=== PATIENT | male | born 1970 | race Caucasian/White ===

== ENCOUNTER 2017-04-06 21:15 | Emergency (ER) | payer BC ==
[~2017-04-06] VITALS: Ht 177.8 cm; Wt 90.7 kg
[2017-04-06] MEDS ORDERED: CRESTOR40 MG (21:25)
[2017-04-06] MEDS ORDERED: VITAMIN E400 UNIT (21:26)
[2017-04-06] MEDS ORDERED: PROTONIX40 M2 (21:26)
[2017-04-06] MEDS ORDERED: MEDROLDOSEPACK PO (21:56)
[2017-04-06 22:03] VITALS: BP 138/90
== END 2017-04-06 22:03 | disposition home or self-care (01) ==
LOC: M.ERS 21:15
DX: K12.2 Cellulitis and abscess of mouth (principal); E78.5 Hyperlipidemia, unspecified; K21.9 Gastro-esophageal reflux disease without esophagitis; Z88.0 Allergy status to penicillin

== ENCOUNTER 2019-11-07 21:08 | Observation (INO) | payer OTHER ==
[~2019-11-07] VITALS: Ht 177.8 cm; Wt 93.9 kg
[~2019-11-07 21:08] MED LIST: CRESTOR40 MG PO; MEDROLDOSEPACK PO; PROTONIX40 M2 PO; VITAMIN E400 UNIT PO
[2019-11-07 21:16] VITALS: BP 152/109
[2019-11-07] MEDS ORDERED: ZETIA10 MG PO (21:19)
[2019-11-07] MEDS ORDERED: XYZAL5 MG PO (21:19)
[2019-11-07] MEDS ORDERED: SINGULAIR 10 MG10 MG PO (21:19)
[2019-11-07 22:31] LABS: ABSOLUTE EOSINOPHILS 0.1 thou/uL (0.0-0.7); ABSOLUTE LYMPHOCYTES 1.8 thou/uL (0.8-5.3); ABSOLUTE MONOCYTES 0.7 thou/uL (0.0-1.2); ABSOLUTE NEUTROPHILS 4.2 thou/uL (1.6-8.1); BASOPHILS 0.6 %; HEMOGLOBIN 16.7 gm/dL (14.0-18.0); LYMPHOCYTES 25.6 %; MCH 31.4 pg (26.0-34.0); MCHC 34.8 g/dL (28.0-37.0); MCV 90.5 fL (80.0-100.0); MPV 9.9 fl. (7.2-11.1); NUCLEATED RBCS 0 /100WBC; PLATELET COUNT* 151 thou/uL (150-400); POLYS 61.8 %; RBC 5.31 mil/uL (4.50-6.00); RDW-CV 13.3 % (10.5-14.5); WBC 6.9 thou/uL (4.0-11.0)
[2019-11-07 22:42] LABS: CALCIUM 9.1 mg/dL (8.5-10.1); CREATININE 1.3 mg/dL (0.6-1.3); POTASSIUM 3.7 mmol/L (3.5-5.1)
[2019-11-07 22:43] LABS: APTT 26.8 Seconds (25.0-31.3); PROTIME 10.7 Seconds (9.20-11.50)
[2019-11-07 22:51] LABS: TOTAL BILIRUBIN 0.6 mg/dL (<0.1-1.0)
[2019-11-08 01:50] VITALS: BP 116/65
[2019-11-08] MEDS ORDERED: NITROGLYCERIN0.4 MG SUBLING (09:30)
[2019-11-08] MEDS ORDERED: ASPIRIN325 PO (09:30)
[2019-11-08 11:01] LABS: CHOLESTEROL 104 mg/dL (<200); HDL CHOLESTEROL 44 mg/dL (>40); LDL CHOLESTEROL 28 mg/dL (<100); TC:HDL 2.4 Ratio (Not establshd); TRIGLYCERIDE 162 mg/dL (<150); VLDL 32 mg/dL (<40)
[2019-11-08 11:02] LABS: SERUM ASSESSMENT Clear
[2019-11-08 12:15] VITALS: BP 117/83
[2019-11-08 13:30] VITALS: BP 117/83
[2019-11-08 13:37] VITALS: BP 117/83
--- NOTE | 2019-11-08 15:44 | EKG ---
[place] [address] ELECTROCARDIOGRAM REPORT Name: CHULA JAY Room: [address] MR.#: [id number] Admission: 11/08/19 Attend Phys: Lucille Thomas, Discharge: 11/08/19 Date of : 70 Date of Service: 11/07/192114 Report #: [id number] THIS REPORT FOR: //name// [facility] ED Test Date: 2019-11-07 Test Time: 21:15:29 Pat Name: CHULA AJY Department: Room: [facility] Gender: M Lead Sustainability Specialist: KIM : 1970 Requested By: Josephine Busch Order Number: [id number] MD: Papa Ren Measurements Intervals [place] Rate: 83 P: 60 W[place]: 179 QRS: 76 QRSD: 98 T: 19 QT: 363 QTc: 427 Interpretive Statements Sinus rhythm Borderline T wave abnormalities ST elev, probable normal early repol pattern No previous ECG available for comparison Electronically Signed On 11-08-2019 15:43:52 CDT by Papa Ren [email or web address] <ELECTRONICALLY SIGNED> By: Papa Ren MD, FACC 11/08/19 1543 14 14 Papa Ren MD, [facility] /EPI
--- NOTE | 2019-11-09 10:41 | CON ---
[address] [address] CONSULTATION Name: CHULA JAY Room: [address] Keith Johnson#: [id number] Admission: 11/08/19 Attend Phys: Lucille Thomas MD Discharge: 11/08/19 Date of : 70 Report #: [id number] THIS REPORT FOR: //name// cc: DEAN - No family physician/PCP DEAN - No family physician/PCP ~ THIS REPORT FOR: //name// CC: [facility] physician/PCP Rishi Arrington DATE OF SERVICE: 11/08/2019 INDICATION: Chest pain and palpitations. HISTORY OF PRESENT ILLNESS: The patient is a very pleasant 49-year-old gentleman with history of SVT ablation in 2010. He has had no recurrence of SVT since then. He presented to the hospital with complaints of palpitations that he states felt similar to what he would experience right before having an episode of SVT. He then describes feeling short of breath and having some tingling in his right arm. The patient was evaluated in the Emergency Room. Troponins are negative x 2 sets. EKG shows sinus rhythm without acute changes. His only significant cardiac risk factor is dyslipidemia for which he takes Crestor and Zetia. He has remained stable overnight. He is without complaint at this time. PAST MEDICAL HISTORY: 1. Hyperlipidemia. 2. Supraventricular tachycardia, status post ablation. 3. GERD. FAMILY HISTORY: Noncontributory. SOCIAL HISTORY: The patient is a lifelong nonsmoker, drinks alcohol occasionally. HOME MEDICATIONS: Crestor 40 mg daily, Protonix 40 mg daily, vitamin E 400 units daily, Xyzal 1 tablet daily, Zetia 10 mg daily, Singulair 10 mg daily. ALLERGIES: None documented. REVIEW OF SYSTEMS: Otherwise, unremarkable. PHYSICAL EXAMINATION: VITAL SIGNS: Stable. Blood pressure 117/83, pulse of 73 and regular. GENERAL: This is a very healthy appearing, pleasant gentleman [place] [address] CONSULTATION Name: CHULA JAY Room: [address] M.R.#: [id number] Admission: 11/08/19 Attend Phys: Lucille Thomas MD Discharge: 11/08/19 Date of : 70 Report #: [id number] Mood and affect appropriate. HEENT: Extraocular muscles intact. Mucous membranes are moist. NECK: Shows no jugular venous distention. There are no carotid bruits. CHEST: Reveals clear lung fernandes without wheezes, rales or rhonchi. CARDIOVASCULAR: Reveals a regular rhythm, normal S1 and S2. I do not appreciate gallop or murmur. ABDOMEN: Reveals normal bowel sounds. The abdomen is soft, nontender. EXTREMITIES: Shows no edema. Peripheral pulses are 2+ and easily palpable. SKIN: Dry. IMPRESSION AND RECOMMENDATIONS: 1. Atypical symptoms. The patient has ruled out for myocardial infarction. I would recommend outpatient stress testing. 2. History of supraventricular tachycardia without recurrence on telemetry. No specific treatment at this time. 3. Dyslipidemia. The patient is on appropriate medications. I recommend a calcium score to assess for any underlying coronary artery disease. At this point in time, the patient appears stable for discharge. <ELECTRONICALLY SIGNED> By: Papa Ren MD, FACC 11/09/19 1041 1334 [id number] MD, FACC /nt
== END 2019-11-08 14:00 | disposition home or self-care (01) ==
LOC: M.ERS 21:08 → M.TBA-ER 11-08 00:32 → M.2W 11-08 01:56
PROVIDERS: Internal Medicine; Personal Emergency Response Attendant; ADMIT Internal Medicine; ATTEND Internal Medicine
DX: R07.89 Other chest pain (principal); K21.9 Gastro-esophageal reflux disease without esophagitis; E78.5 Hyperlipidemia, unspecified; I47.1 Supraventricular tachycardia; Z79.899 Other long term (current) drug therapy; Z20.828 Contact with and (suspected) exposure to other viral communicable diseases